=== PATIENT | male | born 1950 | race Two or more races ===

== ENCOUNTER 2019-08-21 22:20 | Emergency (ER) | payer OTHER ==
[~2019-08-21] VITALS: Ht 177.8 cm; Wt 131.1 kg
[~2019-08-21 22:20] MED LIST: ASPI-404 PO; ATOR40TA52 PO; CHOL20007 PO; FERR-20 PO; FURO40TA4 PO; ISOS30TA4 PO; LEVO100T8 PO; MAGN400T40 PO; PANT40TA2 PO; RIFA550T PO; SULF400I3 PO
[2019-08-21] MEDS ORDERED: ONDANSETRON HCL 4 MG/2 ML VIAL IV ONE (23:00)
[2019-08-21] MEDS ORDERED: MORPHINE SULFATE 4 MG/ML SYR/VIAL IV ONE (23:00)
[2019-08-21 23:14] LABS: Basophils # (auto) 0 10 ^3/uL (0-0.2); Basophils % (auto) 0.9 % (0.0-2.0); Eosinophils # (auto) 0.1 10 ^3/uL (0-0.8); Eosinophils % (auto) 1.2 % (0.0-7.0); Hematocrit 28.8 % (41.0-53.0); Hemoglobin 9.9 g/dL (13.5-17.5); Lymphocytes # (auto) 0.2 10 ^3/uL (0.4-5.4); Lymphocytes % (auto) 3.8 % (10.0-50.0); Mean Corpuscular Hemoglobin 33.2 pg (28.0-32.0); Mean Corpuscular Hgb Conc. 34.5 g/dL (32.0-36.0); Mean Corpuscular Volume 96.2 fL (80.0-100.0); Monocytes # (auto) 0.3 10 ^3/uL (0-1.3); Monocytes % (auto) 6.5 % (0.0-12.0); Neutrophils % (auto) 87.6 % (37.0-80.0); Platelet Count (auto) 62 10^3/uL (140-450); Red Blood Cells 2.99 10^6/uL (4.5-5.90); Red Cell Distribution Width 17.1 % (11.8-14.3); White Blood Cell 4.6 10^3/uL (4.4-10.8)
[2019-08-21 23:31] LABS: Alanine Aminotransferase 23 U/L (16-61); Albumin 2.8 g/dL (3.4-5.0); Anion Gap 8 (5-15); Aspartate Aminotransferase 27 U/L (15-37); BUN/Creatinine Ratio 12.2; Blood Urea Nitrogen 29 mg/dL (7-18); Calcium 8.6 mg/dL (8.5-10.1); Carbon Dioxide 21 mmol/L (21-32); Chloride 105 mmol/L (98-107); GFR African American 35 mL/min; GFR Non-African American 29 mL/min; Glucose 291 mg/dL (74-106); Lipase 417 U/L (73-393); Potassium 5.1 mmol/L (3.5-5.1); Sodium 134 mmol/L (136-145)
[2019-08-21 23:36] LABS: Alkaline Phosphatase 117 U/L (45-117); Bilirubin, Total 1.4 mg/dL (0.2-1.0); Total Protein 7.2 g/dL (6.4-8.2)
[2019-08-21] MEDS ORDERED: MORPHINE SULF INJ 2 MG/ML SYRINGE 1ML IV ONE (23:45)
[2019-08-22] MEDS ORDERED: KETOROLAC TROMETH 15 mg/ml 1ML VL IV ONE (00:30)
[2019-08-22 00:49] VITALS: BP 138/66
== END 2019-08-22 00:14 | disposition home or self-care (01) ==
LOC: ER 22:20 → EDBD 22:20 → ER 08-22 00:14
DX: N20.0 Calculus of kidney (principal)
CPT/HCPCS: 36415; 74176; 80053; 83690; 84484; 85025; 93005; 96374; 96375; 96376; 99285; J1885; J2270; J2405

== ENCOUNTER 2019-08-22 20:45 | Inpatient (IN) | payer OTHER ==
[~2019-08-22] VITALS: Ht 180.3 cm; Wt 116.3 kg
[2019-08-22] MEDS ORDERED: SODIUM CHLORIDE 0.9% 1,000 ML IV ONE (21:45)
[2019-08-22 21:49] LABS: Basophils # (auto) 0 10 ^3/uL (0-0.2); Basophils % (auto) 0.3 % (0.0-2.0); Eosinophils # (auto) 0 10 ^3/uL (0-0.8); Mean Corpuscular Volume 98.2 fL (80.0-100.0); Monocytes # (auto) 0.6 10 ^3/uL (0-1.3)
[2019-08-22 21:51] LABS: Hematocrit 28.1 % (41.0-53.0); Hemoglobin 9.4 g/dL (13.5-17.5); Lymphocytes # (auto) 0.2 10 ^3/uL (0.4-5.4); Lymphocytes % (auto) 1.7 % (10.0-50.0); Mean Corpuscular Hemoglobin 32.8 pg (28.0-32.0); Mean Corpuscular Hgb Conc. 33.4 g/dL (32.0-36.0); Monocytes % (auto) 5.2 % (0.0-12.0); Neutrophils # (auto) 11.2 10 ^3/uL (1.6-8.6); Neutrophils % (auto) 92.8 % (37.0-80.0); Platelet Count (auto) 52 10^3/uL (140-450); Red Blood Cells 2.86 10^6/uL (4.5-5.90); Red Cell Distribution Width 18.1 % (11.8-14.3); White Blood Cell 12.1 10^3/uL (4.4-10.8)
[2019-08-22 21:59] LABS: Albumin 2.4 g/dL (3.4-5.0); Calcium 7.9 mg/dL (8.5-10.1); Potassium 5.1 mmol/L (3.5-5.1)
[2019-08-22] MEDS ORDERED: VANCOMYCIN 1GM/250ML 250 ML IV ONE (22:00)
[2019-08-22] MEDS ORDERED: PIPERACILLIN-TAZOB 3.375GM 100 ML IV ONE (22:00)
[2019-08-22 22:05] LABS: BUN/Creatinine Ratio 11.2; Bilirubin, Total 4.4 mg/dL (0.2-1.0); Total Protein 6.3 g/dL (6.4-8.2)
[2019-08-22 22:51] LABS: Lactic Acid w/Reflex 5.2 mmol/L (0.4-2.0)
[2019-08-23] MEDS ORDERED: SODIUM CHLORIDE 0.9% 1,000 ML IV ONE (00:30)
[2019-08-23] MEDS ORDERED: VANCOMYCIN PER PHARMACY 0 MG IV SCH (02:30)
[2019-08-23] MEDS ORDERED: HYDROcodone-ACET 10/325MG TAB PO ONE (02:30)
[2019-08-23] MEDS ORDERED: MORPHINE SULF INJ 2 MG/ML SYRINGE 1ML IV PRN (03:00)
[2019-08-23] MEDS ORDERED: NITROGLYCERIN 0.4 MG SL TAB SL PRN (03:00)
[2019-08-23 03:32] LABS: INR 1.55 (0.9-1.15); Partial Thromboplastin Time 38.7 sec (23.64-32.05)
[2019-08-23 05:00] VITALS: BP 106/56
[2019-08-23] MEDS: PIPERACILLIN-TAZOB 2.25GM 50 ML IV SCH ×2 (05:34→11:58)
[2019-08-23] MEDS ORDERED: ACETAMINOPHEN 325 MG TAB PO PRN (05:45)
[2019-08-23] MEDS ORDERED: HYDROcodone-ACET 5/325MG TAB PO PRN (05:45)
--- NOTE | 2019-08-23 06:52 | NUR ---
08/23/19. 0440. PATIENT ADMITTED FROM ER THIS MORNING ON A STRETCHER. MAIN COMPLAINT WAS RIGHT FLANK PAIN. PATIENT WAS MADE COMFORTABLE. WAS TEPID SPONGED FOR TEMPERATURE 100.9.
[2019-08-23] MEDS ORDERED: LEVOTHYROXINE SODIUM 100 MCG TAB PO SCH (07:00)
--- NOTE | 2019-08-23 07:30 | NUR ---
Patient in bed, awake, oriented x4, with cholecystectomy bag tube intact on the right lower abdominal quadrant draining dark brown fluid. Patient refused to wear his hospital gown.
--- NOTE | 2019-08-23 07:41 | NUR ---
NASAL SWAB SENT TO LAB FOR MRSA.
--- NOTE | 2019-08-23 07:43 | NUR ---
CHOLECYSTECTOMY DRAINAGE TUBE AND BAG SECURED ON THE ANTERIOR ABDOMINAL WALL. DRAIN IS GREYISH.
--- NOTE | 2019-08-23 07:50 | NUR ---
Patient's left forearm covered with bandage. Bruises noted on the right forearm.
--- NOTE | 2019-08-23 08:00 | NUR ---
Patient laying in bed, horizontally. CHALINO Akins and I assisted the patient to reposition vertically in bed. Placed the patient on O2 at 2 LPM. Patient removed the nasal cannula.
--- NOTE | 2019-08-23 08:20 | NUR ---
Photos taken of the bilateral upper extremities. Wound care forms placed on the Wound care tray. Camera [facility] to [facility].
[2019-08-23 09:00] VITALS: BP 72/44
--- NOTE | 2019-08-23 09:20 | NUR ---
Patient sitting up on bed.
[2019-08-23] MEDS ORDERED: rifAXIMin 550 MG TAB PO SCH (10:00)
[2019-08-23] MEDS ORDERED: PANTOPRAZOLE 40 MG TAB PO SCH (10:00)
[2019-08-23] MEDS ORDERED: ASPirin 81 mg TAB PO SCH (10:00)
--- NOTE | 2019-08-23 10:00 | NUR ---
About 200 ml of dark isaiah/reddish urine noted in the urinal.
[2019-08-23 10:26] LABS: Eosinophils # (auto) 0 10 ^3/uL (0-0.8); Hemoglobin 9.6 g/dL (13.5-17.5); Lymphocytes # (auto) 0.1 10 ^3/uL (0.4-5.4); Monocytes # (auto) 1.2 10 ^3/uL (0-1.3); Red Blood Cells 2.89 10^6/uL (4.5-5.90)
[2019-08-23 10:27] LABS: Basophils # (auto) 0 10 ^3/uL (0-0.2); Basophils % (auto) 0.2 % (0.0-2.0); Eosinophils % (auto) 0.1 % (0.0-7.0); Hematocrit 28.7 % (41.0-53.0); Mean Corpuscular Hemoglobin 33.1 pg (28.0-32.0); Mean Corpuscular Hgb Conc. 33.3 g/dL (32.0-36.0); Mean Corpuscular Volume 99.5 fL (80.0-100.0); Monocytes % (auto) 8.2 % (0.0-12.0); Neutrophils # (auto) 12.8 10 ^3/uL (1.6-8.6); Neutrophils % (auto) 90.5 % (37.0-80.0); Platelet Count (auto) 44 10^3/uL (140-450); Red Cell Distribution Width 18.9 % (11.8-14.3); White Blood Cell 14.2 10^3/uL (4.4-10.8)
[2019-08-23 10:33] LABS: BUN/Creatinine Ratio 11.8; Calcium 7.3 mg/dL (8.5-10.1)
--- NOTE | 2019-08-23 10:35 | NUR ---
Allifuna-fk-guo Catrina wants the patient to be transferred to [place]. Explained to Catrina that the doctor will see the patient and will decode if patient will be transferred. Addendum: 08/23/19 at 1615 by Donna Burgess RN decide
--- NOTE | 2019-08-23 10:35 | NUR ---
[id number] Catrina ([phone]; Password: "[id number]") called.
[2019-08-23 10:47] LABS: Potassium 5.8 mmol/L (3.5-5.1)
--- NOTE | 2019-08-23 10:50 | NUR ---
Laboratory called that K = 5.8*H.
[2019-08-23] MEDS ORDERED: SODIUM ZIRCONIUM CYCL 10 GM PAK PO ONE (11:15)
[2019-08-23] MEDS ORDERED: SODIUM BICARBONATE 50ML VIAL 150 ML in D5W 5% 1,000 ML IV ONE (11:15)
[2019-08-23] MEDS ORDERED: CALCIUM GLUC 4.65meq/50ml D5AE 50 ML IV ONE (11:15)
[2019-08-23] MEDS ORDERED: SODIUM BICARBONATE 8.4% INJ 50ML SYRINGE IV ONE (11:15)
[2019-08-23] MEDS ORDERED: InsuLIN REG 1unit/0.01ml Soln (100units/ml) IV ONE (11:15)
[2019-08-23] MEDS ORDERED: SODIUM BICARBONATE 50ML VIAL 75 ML in D5W/SOD CHL 0.45% 1,000 ML IV SCH (11:15)
[2019-08-23] MEDS ORDERED: ALBUTEROL SULF 2.5 MG/0.5ML(0.5%) NEB SOLN NEB ONE (11:15)
[2019-08-23] MEDS ORDERED: DEXTROSE (50%) 50ML SYRG IV ONE (11:15)
--- NOTE | 2019-08-23 11:16 | NUR ---
Dr. Pinzon put in new orders. transferred the care for Nephrology to Dr. Suresh.
--- NOTE | 2019-08-23 11:30 | NUR ---
Dr. Suresh at bedside for Nephrology Consult. ordered Joiner catheter insertion. Dr. Suresh ordered to hold the Zosyn IV. Dr. Suresh to call Dr. Pinzon.
--- NOTE | 2019-08-23 11:45 | NUR ---
Charge Nurse Arabella inserted the Joiner catheter 18 Fr, in one attempt, draining cloudy orange urine. Patient able to tolerate it.
--- NOTE | 2019-08-23 11:59 | NUR ---
Dr. Suresh ordered to hold the Zosyn.
--- NOTE | 2019-08-23 12:10 | NUR ---
Paged Dr. Pinzon regarding patient's family request to transfer the patient to [place]. Waiting for the MD to call back.
--- NOTE | 2019-08-23 12:25 | NUR ---
Dr. Pinzon said Sandeep Crockett is the hospitalist. Called Dr. Reddy. IQBAL to come over to see the patient.
--- NOTE | 2019-08-23 12:30 | NUR ---
Called [id number] Pildion that Sandeep Crockett is the patient's hospitalist and will see the patient today.
[2019-08-23 12:37] LABS: Urine Bacteria MANY /hpf (None Seen); Urine Blood 3+ /uL (Negative); Urine WBC 2299 /hpf (0 - 3); Urine WBC Clumps PRESENT /hpf (None Seen)
[2019-08-23 12:46] LABS: Urine Specific Gravity 1.023 (1.001-1.035)
[2019-08-23 12:49] VITALS: BP 74/41
[2019-08-23 12:59] LABS: Creatinine, Urine 164 mg/dL (30.0-125.0); Sodium Urine 48 mmol/L (40-220)
[2019-08-23] MEDS ORDERED: cefTRIAXone 1GM/50ML D5W 50 ML IV ONE (13:00)
[2019-08-23] MEDS ORDERED: SODIUM ZIRCONIUM CYCL 10 GM PAK PO SCH (14:00)
--- NOTE | 2019-08-23 14:40 | NUR ---
Patient on the bedside commode.
--- NOTE | 2019-08-23 15:00 | NUR ---
Patient insisted of getting transferred to [facility]. Explained to patient he has to be seen by the hospitalist, the doctor will decide if he's going to be transferred.
--- NOTE | 2019-08-23 15:10 | NUR ---
Patient stated his daughter called and will pick him up to take him to [facility]. Explained to patient that leaving against medical advice, he will sign a form. Risks and benefits explained, patient insisted of leaving AMA. Patient signed the AMA form.
--- NOTE | 2019-08-23 15:12 | NUR ---
Removed the Joiner catheter. Patient stated his daughter will come over in half an hour. Patient refused the due medications.
[2019-08-23 15:15] LABS: Anion Gap 18 (5-15); BUN/Creatinine Ratio 12.6; Blood Urea Nitrogen 52 mg/dL (7-18); Calcium 7.6 mg/dL (8.5-10.1); Carbon Dioxide 10 mmol/L (21-32); Chloride 104 mmol/L (98-107); GFR African American 18 mL/min; GFR Non-African American 15 mL/min; Glucose 156 mg/dL (74-106); Potassium 5.5 mmol/L (3.5-5.1); Sodium 132 mmol/L (136-145)
--- NOTE | 2019-08-23 16:05 | NUR ---
AMA Note JENNI VANN states he wants to leave the hospital Against Medical Advice (AMA). Patient encouraged to stay for further treatment/stabilization. Tyree Lino MD notified of patient's wishes. Patient advised of the risks and benefits of leaving AMA. Patient verbalized understanding. Patient encouraged to return to the ER if symptoms do not improve or worsen. No acute distress on time of discharge. Daughter picked up the patient at the main lobby. Daughter was looking for discharge papers. Explained to daughter that I explained to the patient that he needs to stay because of his medical issues, but patient insisted of leaving, stated that his daughter will pick him up and bring him to [facility]. Patient signed the AMA form so no discharge summary is given to patient. Explained to daughter that they can make a request from the Medical Records Unit of all the tests the patient received at [facility].
--- NOTE | 2019-08-23 16:07 | NUR ---
Called Sandeep Crockett MD made aware patient insisted of leaving the hospital against medical advice, that his daughter will take him to [facility]. Patient signed and left the hospital against medical advice.
--- NOTE | 2019-08-23 16:10 | NUR ---
IV line removed, IV catheter intact, pressure dressing applied.
[2019-08-23] MEDS ORDERED: LACTULOSE 20Gm/30ML SOLN PO SCH (18:00)
[2019-08-23] MEDS ORDERED: ATORVASTATIN 20 MG TAB PO SCH (22:00)
[2019-08-24] MEDS ORDERED: cefTRIAXone 1GM/50ML D5W 50 ML IV SCH (09:00)
== END 2019-08-23 16:05 | disposition left against medical advice (07) | DRG 871 ==
LOC: EDBD 20:45 → ER 20:51 → TELE 20:52 → TELE-CENTR 08-23 04:39
PROVIDERS: ADMIT Nurse Practitioner; ATTEND Family Medicine
DX: A41.9 Sepsis, unspecified organism (principal); R65.21 Severe sepsis with septic shock; K80.12 Calculus of gallbladder with acute and chronic cholecystitis without obstruction; N17.9 Acute kidney failure, unspecified; E44.0 Moderate protein-calorie malnutrition; E87.2 Acidosis; N13.6 Pyonephrosis; K74.60 Unspecified cirrhosis of liver; Z53.29 Procedure and treatment not carried out because of patient's decision for other reasons; D69.6 Thrombocytopenia, unspecified; E78.5 Hyperlipidemia, unspecified; E11.22 Type 2 diabetes mellitus with diabetic chronic kidney disease; E87.5 Hyperkalemia; N18.9 Chronic kidney disease, unspecified; E66.01 Morbid (severe) obesity due to excess calories; I12.9 Hypertensive chronic kidney disease with stage 1 through stage 4 chronic kidney disease, or unspecified chronic kidney disease; I25.10 Atherosclerotic heart disease of native coronary artery without angina pectoris; Z95.1 Presence of aortocoronary bypass graft; Z82.49 Family history of ischemic heart disease and other diseases of the circulatory system; Z86.73 Personal history of transient ischemic attack (TIA), and cerebral infarction without residual deficits; Z87.442 Personal history of urinary calculi; Z79.899 Other long term (current) drug therapy; Z68.35 Body mass index [BMI] 35.0-35.9, adult
CPT/HCPCS: 36415; 71045; 74176; 76705; 80048; 80053; 80202; 81001; 82140; 82570; 82962; 83605; 83690; 84300; 84484; 85025; 85610; 85730; 87040; 87081; 87086; 93005; 94640; 96365; 96366; 96368; G0378; J0610; J0696; J1815; J2543